=== PATIENT | male | born 1995 | race African-American/Black ===

== ENCOUNTER 2018-01-04 23:29 | Emergency (ER) | payer BC ==
[~2018-01-04] VITALS: Ht 182.9 cm; Wt 82.6 kg
[2018-01-04 23:39] VITALS: TEMP 36.8; Ht 182.9 cm; Wt 82.6 kg
[2018-01-04] MEDS ORDERED: XYLOCAINE 1%/SOD BICARB 20 ML VIAL INFIL ONE (23:45)
[2018-01-05 00:17] VITALS: BP 118/65; PULSE 78; O2SAT 99
--- NOTE | 2018-01-05 00:27 | EMERGENCY ROOM VISIT NOTE ---
History First contact with patient: 23:41 Chief Complaint: LACERATION/CUT (SUT/DERMABOND) Stated Complaint: [facility] Nursing Triage Summary: pt was playing basketball and hit with elbow to right face, small lac History of Present Illness The patient is a 22 year old male who presents to the Emergency Room with complaints of a small right eyebrow laceration after accidentally getting elbowed while playing basketball tonight. The patient denies any loss of consciousness, headache, neck pain or other injuries. Tetanus immunization is up-to-date. The patient denies any significant discomfort on my exam. Review of Systems 6 system review was performed and was negative except for pertinent positives and negatives as indicated in history of present illness Past Medical/Surgical History Medical Problems: (1) No significant past medical history Surgical Problems: (1) No history of previous surgery Family History FH: cancer Social History Smoking Status: Never Smoker Alcohol Use: occasionally Marital Status: single Occupation Status: [employer] Current/Historical Medications No Active Prescriptions or Reported Meds Physical Exam Vital Signs Date Time Temp Pulse Resp B/P (MAP) Pulse Ox O2 Delivery O2 Flow Rate FiO2 01/05/18 00:17 78 18 118/65 99 01/04/18 23:39 36.8 67 18 118/67 100 Room Air Physical Exam CONSTITUTIONAL: Healthy and well nourished. Alert and oriented X 3 with positive affect. GCS 15. HEENT: Examination shows a 1 cm laceration above the right lateral eyebrow margin. No active bleeding or hematoma formation.. Pupils equal, round and reactive. No subconjunctival hemorrhage, epistaxis or hemotympanum. NECK: Full active range of motion without discomfort. INTEGUMENTARY: No rash or other significant dermatologic conditions noted. NEUROLOGIC: No focal neurologic deficits noted. No ataxia with ambulation. Negative pronator drift. Medical Decision & Procedures Procedure Laceration repair was performed under local anesthesia after receiving verbal consent from the patient. Using buffered 1% lidocaine without epinephrine, good local anesthesia was administered. The wound was then peripherally cleansed with iodine, then irrigated with normal saline. Exploration of the wound does not show any underlying debris. The wound was then approximated using 6-0 nylon simple interrupted sutures. Bacitracin was applied. ED Course Patient history and physical exam were performed. Nurse's notes were reviewed. Vital signs were reviewed and were normal. Laceration repair was performed under local anesthesia. The patient was provided additional verbal and written wound care instructions. Ice as needed for swelling. Ibuprofen or Tylenol as needed for pain. Suture removal in 5-7 days, or seek reevaluation sooner for any signs of wound infection. The patient was happy with plan of care, voiced understanding of all discharge instructions, and denied any significant pain at the time of discharge. Medical Decision Medication Reconcilliation Current Medication List: was personally reviewed by me Blood Pressure Screening Patient's blood pressure: Normal blood pressure Impression Primary Impression: Facial laceration Departure Information Dispostion Home / Self-Care Prescriptions No Active Prescriptions or Reported Meds Referrals No Doctor, Assigned (PCP) Forms HOME CARE DOCUMENTATION FORM, IMPORTANT VISIT INFORMATION Patient Instructions [facility] Additional Instructions Keep wound clean and dry. Do not allow any crusting or dried blood to accumulate on sutures. If this occurs, use a 1:1 solution of hydrogen peroxide/ water on a Q-tip to clean the wound. Use an antibiotic ointment for 3 days, then let wound dry. Suture removal in 5-7 days. Return sooner for any signs of infection (increasing redness, swelling, drainage). Ice for swelling. Ibuprofen 600 mg and/or Tylenol 1000 mg every 6 hrs as needed for pain. Problem Qualifiers Primary Impression: Facial laceration Encounter type: initial encounter Qualified Codes: S01.81XA - Laceration without foreign body of other part of head, initial encounter
== END 2018-01-05 00:15 | disposition home or self-care (01) ==
LOC: C.EDB 23:30 → C.EDA 01-05 00:15
DX: S01.111A Laceration without foreign body of right eyelid and periocular area, initial encounter (principal); W50.0XXA Accidental hit or strike by another person, initial encounter; Y93.67 Activity, basketball